=== PATIENT | female | born 1980 | race Caucasian/White ===

== ENCOUNTER 2017-01-27 10:45 | Emergency (ER) | payer SELFPAY ==
[~2017-01-27] VITALS: Ht 157.5 cm; Wt 50.0 kg
[~2017-01-27 10:45] MED LIST: ALBU0.08 NEB; ALBU2.5I INH; OXYC1TAB63 PO; TRIAM.1%T TOPICAL
[2017-01-27 10:47] VITALS: BP 130/59; PULSE 88; RESP 18; TEMP 98; O2SAT 99
[2017-01-27] MEDS ORDERED: LORazepam 1 MG TAB PO ONE (11:15)
[2017-01-27 11:27] VITALS: BP 131/85; PULSE 86; RESP 20; O2SAT 99
[2017-01-27 11:45] LABS: AUTOMATED NEUTROPHIL # 6.2 TH/MM3 (1.8-7.7); BASOPHIL # 0.1 TH/MM3 (0-0.2); BASOPHIL % 0.6 % (0.0-2.0); EOSINOPHIL # 0.2 TH/MM3 (0-0.4); EOSINOPHIL % 1.9 % (0.0-4.0); HEMATOCRIT 39.3 % (35.0-46.0); HEMO FLAGS DIFF FINAL; LYMPH % 18.2 % (9.0-44.0); LYMPHOCYTE # 1.7 TH/MM3 (1.0-4.8); MEAN CELL VOLUME 85.4 FL (80.0-100.0); MEAN CORPUSCULAR HEMOGLOBIN 28.5 PG (27.0-34.0); MEAN CORPUSCULAR HGB CONC 33.4 % (32.0-36.0); MONO % 12.4 % (0.0-8.0); NEUT % 66.9 % (16.0-70.0); PLATELET COUNT 336 TH/MM3 (150-450); RED CELL DISTRIBUTION WIDTH 16.3 % (11.6-17.2); WHITE BLOOD COUNT 9.3 TH/MM3 (4.0-11.0)
[2017-01-27 11:57] LABS: AMPHETAMINE, URINE POS (NEG); BARBITURATES, URINE NEG (NEG); COCAINE, URINE POS (NEG)
[2017-01-27 11:58] LABS: ALT (GPT) 21 U/L (10-53); ANION GAP 7 MEQ/L (5-15); AST (GOT) 24 U/L (15-37); BICARBONATE 25.9 MEQ/L (21.0-32.0); BLOOD UREA NITROGEN 12 MG/DL (7-18); CHLORIDE 108 MEQ/L (98-107); GLOMERULAR FILTRATION RATE 89 ML/MIN (>89); POTASSIUM 3.2 MEQ/L (3.5-5.1); SODIUM (NA) 141 MEQ/L (136-145)
[2017-01-27 12:01] LABS: ACETAMINOPHEN LESS THAN 2.0 MCG/ML (10.0-30.0); ALKALINE PHOSPHATASE 74 U/L (45-117); TOTAL BILIRUBIN ADULT 0.5 MG/DL (0.2-1.0)
[2017-01-27] MEDS ORDERED: ALBUAER3 INH (12:15)
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
== END 2017-01-27 13:46 | disposition home or self-care (01) ==
LOC: NEPD 10:45
DX: F41.9 Anxiety disorder, unspecified (principal); F19.920 Other psychoactive substance use, unspecified with intoxication, uncomplicated; J45.909 Unspecified asthma, uncomplicated; F17.210 Nicotine dependence, cigarettes, uncomplicated
CPT/HCPCS: 80053; 80307; 85025; 99283

== ENCOUNTER 2017-02-10 15:25 | Emergency (ER) | payer SELFPAY ==
[~2017-02-10] VITALS: Ht 157.5 cm; Wt 50.0 kg
[~2017-02-10 15:25] MED LIST changes: -ALBU0.08 NEB; -ALBU2.5I INH; +ALBUAER3 INH; -OXYC1TAB63 PO; -TRIAM.1%T TOPICAL
[2017-02-10 15:27] VITALS: BP 116/57; PULSE 92; RESP 18; TEMP 99.5; O2SAT 96
--- NOTE | 2017-02-10 15:35 | PD ---
Physical Exam Time Seen by Provider: 15:33 Narrative 36yo F c/o worsening of pain to R buttock abscess she had I&D yesterday at [facility]. Taking antibx. Denies fever, vomiting. Patient seen in triage. Awaiting bed placement. VS reviewed. Data Data Last Documented VS Vital Signs Date Time Temp Pulse Resp B/P Pulse Ox O2 Delivery O2 Flow Rate FiO2 02/10/17 15:27 99.5 92 18 116/57 96 MDM Supervised Visit with BONY: Marissa Putnam February 10, 2017 15:35
--- NOTE | 2017-02-10 15:37 | PD ---
HPI . right buttocks abscess Chief Complaint: Skin Problem Time Seen by Provider: 15:37 Travel History International Travel<30 days: No Contact w/Intl Traveler<30days: No Traveled to known affect area: No History of Present Illness HPI 36-year-old female here with complaints of a right buttocks abscess. She was previously seen at another hospital yesterday and received incision and drainage. She thinks the area is worsening secondary increased pain. Patient is now on Bactrim. She is taking it daily. She tells me it very difficult for her to go to work because she stands up and her buttocks is hurting. She denies any fever, but thinks she may have had chills. PFSH Past Medical History Asthma: Yes Blood Disorders: Yes (Vaginal bleed 06/16/16) Anxiety: Yes Cancer: No Cardiovascular Problems: No Diabetes: No Diminished Hearing: No Genitourinary: No Immune Disorder: No Musculoskeletal: Yes (carpal tunnel) Neurologic: No Reproductive: Yes (Admitted 06/16/16 for D&C for bleeding) Respiratory: Yes (ASTHMA) Thyroid Disease: No ?: Not : 3 Para: 1 Miscarriage: 1 : 1 Dilation and Curettage (D&C): Yes Past Surgical History Appendectomy: Yes Social History Alcohol Use: Yes Tobacco Use: Yes (1/2 ppd) Substance Use: Yes (OPIATES, METH, COCAINE, MARIJUANA) Allergies-Medications (Allergen,Severity, Reaction): Coded Allergies: No Known Allergies (Unverified , 01/27/17) Reported Meds & Prescriptions Reported Meds & Active Scripts Active Proair Hfa 8.5 GM Inh (Albuterol Sulfate) 90 Mcg/Act Aer 2 Puff INH Q4-6H PRN 108 mcg/actuation Review of Systems General / Constitutional: No: Fever Eyes: No: Visual changes HENT: No: Headaches Cardiovascular: No: Chest Pain or Discomfort Respiratory: No: Shortness of Breath Gastrointestinal: No: Abdominal Pain Genitourinary: No: Dysuria Musculoskeletal: No: Pain Skin: Positive Other (buttocks pain/swelling), No Rash Neurologic: No: Weakness Psychiatric: No: Depression Endocrine: No: Polydipsia Hematologic/Lymphatic: No: Easy Bruising Physical Exam Narrative GENERAL: AAO x 3, no acute distress, Well-nourished, well-developed patient. SKIN: Warm and dry. No visible rashes or bruising. right buttocks, small area of erythema approximately quarter sized. firm, without any fluctuance. no streaking. very minimal drainage present. no induration present. HEAD: Normocephalic and atraumatic. EYES: No scleral icterus. No injection or drainage. ENT: No nasal drainage noted. Mucous membranes pink. Airway patent. NECK: Supple, trachea midline. No JVD. CARDIOVASCULAR: Regular rate and rhythm without murmurs, gallops, or rubs. RESPIRATORY: Breath sounds equal bilaterally. No accessory muscle use. No rhonchi or rales. GASTROINTESTINAL: visual inspection normal EXTREMITIES: No cyanosis or edema. BACK: Nontender without obvious deformity. No CVA tenderness. PSYCH: AAO x 3, normal affect. Data Data Last Documented VS Vital Signs Date Time Temp Pulse Resp B/P Pulse Ox O2 Delivery O2 Flow Rate FiO2 02/10/17 15:27 99.5 92 18 116/57 96 MDM Medical Decision Making Medical Screen Exam Complete: Yes Emergency Medical Condition: Yes Medical Record Reviewed: Yes Differential Diagnosis cellulitis, abscess, less likely sepsis Narrative Course 36-year-old female seen and examined. She appears to have a previous abscess that has been lanced. It is not an actual abscess today. It is not indurated or fluctuant. There is an area of cellulitis present I've advised her to continue using Bactrim daily. She can try warm compresses to the area to see if it forms into another abscess , and can return for drainage. We discussed signs of worsening infection and when to return to the emergency department. I advised to keep the area clean. Patient verbalized understanding of instructions, questions were answered, and thanked me for their care. I advised them if their condition worsens, please return to the nearest emergency room for further care. Diagnosis Primary Impression: Cellulitis of buttock, right Patient Instructions: General Instructions Departure Forms: Tests/Procedures, Work Release Enter return to work date: February 11, 2017 Additional Instructions: [place] for worsening signs of infection which include fever, increased redness , increased warmth, purulent drainage, increased swelling or streaking. If any of these develop, please go to the nearest emergency room. Continue taking the previous antibiotic use were given. You can try to use warm compresses to the area to see if a head develops. If it does, you can come back to the emergency department to have it drained. Disposition: 01 DISCHARGE HOME Condition: Stable Rochelle Cartwright February 10, 2017 15:37
== END 2017-02-10 16:05 | disposition home or self-care (01) ==
LOC: NEPK 15:25
DX: L03.317 Cellulitis of buttock (principal); F17.200 Nicotine dependence, unspecified, uncomplicated; Z98.890 Other specified postprocedural states; Z87.09 Personal history of other diseases of the respiratory system; Z86.59 Personal history of other mental and behavioral disorders; Z87.39 Personal history of other diseases of the musculoskeletal system and connective tissue
CPT/HCPCS: 99282

== ENCOUNTER 2017-06-03 02:17 | Emergency (ER) | payer SELFPAY ==
[~2017-06-03] VITALS: Ht 157.5 cm; Wt 52.0 kg
[2017-06-03 02:20] VITALS: BP 140/72; PULSE 74; RESP 18; TEMP 98.7; O2SAT 95
[2017-06-03 02:46] VITALS: BP_SYST 116; BP_SYST 88; BP_DIAS 51; BP_DIAS 72; PULSE 63; RESP 16; TEMP 98.2; O2SAT 98
--- NOTE | 2017-06-03 02:53 | PD ---
HPI Chief Complaint: Complaint Time Seen by Provider: 02:31 Travel History International Travel<30 days: No Contact w/Intl Traveler<30days: No Traveled to known affect area: No History of Present Illness HPI 36 y/o female presents with vaginal bleeding and states she was just at [facility] and diagnosed with a uti and placed on ciprofloxacin. she states that after her antibiotic now is started having vaginal bleeding and is worried her cyst is acting up. she states her lmp was the 20th of last month and her cycle is usually regular. she states the bleeding is better now and had just started. she denies other concerns. PFSH Past Medical History Asthma: Yes Blood Disorders: Yes (Vaginal bleed 06/16/16) Anxiety: Yes Cancer: No Cardiovascular Problems: No Diabetes: No Diminished Hearing: No Gastrointestinal Disorders: No Genitourinary: No Immune Disorder: No Implanted Vascular Access Dvce: No Musculoskeletal: Yes (carpal tunnel) Neurologic: No Reproductive: Yes (Admitted 06/16/16 for D&C for bleeding) Respiratory: Yes (ASTHMA) Integumentary: Yes (psoriasis ) Immunizations Current: No Thyroid Disease: No Tetanus Vaccination: Unknown ?: Not LMP: 05/13/17 : 3 Para: 1 Miscarriage: 1 : 1 Dilation and Curettage (D&C): Yes Past Surgical History Appendectomy: Yes Other Surgery: Yes (appendectomy) Social History Alcohol Use: Yes Tobacco Use: Yes (1 ppd every 2 days) Substance Use: Yes (OPIATES, METH, COCAINE, MARIJUANA) Allergies-Medications (Allergen,Severity, Reaction): Coded Allergies: No Known Allergies (Unverified , 06/03/17) Reported Meds & Prescriptions Reported Meds & Active Scripts Active Proair Hfa 8.5 GM Inh (Albuterol Sulfate) 90 Mcg/Act Aer 2 Puff INH Q4-6H PRN 108 mcg/actuation Review of Systems Except as stated in HPI: all other systems reviewed are Neg Physical Exam Narrative GENERAL: Well-nourished, well-developed patient. well appearing SKIN: Warm and dry. HEAD: Normocephalic and atraumatic. EYES: No injection or drainage. ENT: No nasal drainage noted. NECK: Supple, trachea midline. CARDIOVASCULAR: Regular rate and rhythm RESPIRATORY: Breath sounds equal bilaterally. No accessory muscle use. GASTROINTESTINAL: Abdomen soft, mild ttp in suprapubic area, nondistended. EXTREMITIES: No edema. NEUROLOGICAL: Awake and alert. Motor and sensory grossly within normal limits. Normal speech. Data Data Last Documented VS Vital Signs Date Time Temp Pulse Resp B/P (MAP) Pulse Ox O2 Delivery O2 Flow Rate FiO2 06/03/17 04:47 06/03/17 02:46 98.2 63 16 98 Room Air Orders Orders Urinalysis - C+S If Indicated (06/03/17 02:42) Ed Urine Pregnancytest Poc (06/03/17 02:42) Us Pelvis Comp W Dop Transvag (06/03/17 02:42) Ibuprofen (Motrin) (06/03/17 05:00) Labs Laboratory Tests Test 06/03/17 02:50 Urine Color YELLOW Urine Turbidity CLEAR Urine pH 7.0 Urine Specific [place] 1.016 Urine Protein NEG mg/dL Urine Glucose (UA) NEG mg/dL Urine Ketones NEG mg/dL Urine Occult Blood NEG Urine Nitrite NEG Urine Bilirubin NEG Urine Urobilinogen LESS THAN 2.0 MG/DL Urine Leukocyte Esterase NEG Urine RBC 2 /hpf Urine WBC 1 /hpf Urine Squamous Epithelial Cells <1 /hpf Microscopic Urinalysis Comment CULT NOT INDICATED MDM Medical Decision Making Medical Screen Exam Complete: Yes Emergency Medical Condition: Yes Medical Record Reviewed: Yes (pm[facility] confirmed) Interpretation(s) beta is negative ua no acute Last 24 hours Impressions Abdomen/Pelvis/Transvag US 06/03/17 0242 Signed Impressions: Service Date/Time: Saturday, June 03, 2017 03:18 - CONCLUSION: 1. 6.9 cm complex multiseptated right ovarian cyst. 2. Small subcentimeter nabothian cyst. 3. Trace free fluid. Pelvic ultrasound follow-up in 6-12 weeks is recommended for findings suggestive, but not classic for hemorrhagic adnexal cyst, endometrioma, or dermoid in women of reproductive age. If unchanged or unresolved, follow with contrast-enhanced pelvic MRI or ultrasound. Unless classic endometrioma or dermoid is then confirmed on contrast-enhanced pelvic MRI or ultrasound follow-up, consider surgical consultation. Reference: Marleny Mcneill MD Differential Diagnosis cyst, menses, ectopic, miscarriage... Narrative Course will check ua, beta, us and reeval, patient agrees to plan ed workup shows 6.9 cm complex cyst on right, will discuss with ob hospitalist Patient denies any new complaints and states that they are feeling better. Patient happy with care, all questions answered. Patient knows that follow up is incumbent on them and to return to the emergency room immediately if new or worsening symptoms develop. Patient given strict return precautions, vitals reviewed and are normal, agrees to further workup as an outpatient. 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
[2017-06-03 03:00] LABS: BLOOD, URINE NEG (NEG); GLUCOSE,URINE NEG (NEG); KETONE, URINE NEG (NEG); NITRITE,URINE NEG (NEG); SQUAMOUS EPITHELIAL CELL URINE <1 /hpf (0-5); URINE COLOR YELLOW (YELLW/STRAW)
[2017-06-03 03:02] LABS: COMMENT (UR) CULT NOT INDICATED; CULTURE IF INDICATED CULT NOT INDICATED
--- NOTE | 2017-06-03 04:34 | RADRPT ---
EXAM DATE/TIME: 06/03/2017 03:18 [place] COMPARISON: No previous studies available for comparison. INDICATIONS : Pelvic pain. MEDICAL HISTORY : Asthma. Carpel tunnel. Bipolar disorder. Anxiety. Psoriasis. Substance us e. SURGICAL HISTORY : Appendectomy. Blood transfusions. D&C. ENCOUNTER: Initial ACUITY: 2 days PAIN SCORE: 10/10 LOCATION: Bilateral pelvis MEASUREMENTS: UTERUS: 8.3 x 4.0 x 4.2 cm ENDOMETRIAL STRIPE: 4 mm RIGHT OVARY: 7.5 x 6.3 x 5.9 cm LEFT OVARY: 2.6 x 2.2 x 1.5 cm FINDINGS: UTERUS: The myometrium has homogeneous echotexture without mass. Small cyst measuring 4 x 5 x 4 mm near the cervix reflecting a small nabothian cyst. RIGHT OVARY: Multiple right ovarian cysts with a large complex multiseptated cyst measuring 6.9 x 4.7 x 5.0 cm. Normal ovarian blood flow at this time. LEFT OVARY: Ovary contains no mass or significant cystic lesion. Normal ovarian blood flow at th is time. MISCELLANEOUS: Trace free fluid CONCLUSION: 1. 6.9 cm complex multiseptated right ovarian cyst. 2. Small subcentimeter nabothian cyst. 3. Trace free fluid. Pelvic ultrasound follow-up in 6-12 weeks is recommended for findings suggestive, but not classic for hemorrhagic adnexal cyst, endometrioma, or dermoid in women of reproductive age. If unchanged or unr esolved, follow with contrast-enhanced pelvic MRI or ultrasound. Unless classic endometrioma or derm oid is then confirmed on contrast-enhanced pelvic MRI or ultrasound follow-up, consider surgical cons ultation. Reference: Marleny Mcneill MD, et al. Management of Asymptomatic Ovarian and Other Adnexa l Cysts Imaged at Ultrasound: Society of Radiologists in Ultrasound Consensus Conference Statement. R adiology 2010; 256:943-954. Lukas Alvarez MD on June 03, 2017 at 4:26 Board Certified Radiologist. This report was verified electronically.
[2017-06-03] MEDS ORDERED: IBUPROFEN 400 MG TAB PO ONE (05:00)
== END 2017-06-03 04:48 | disposition home or self-care (01) ==
LOC: NEPC 02:17
DX: N83.201 Unspecified ovarian cyst, right side (principal); N93.9 Abnormal uterine and vaginal bleeding, unspecified; F17.200 Nicotine dependence, unspecified, uncomplicated; R10.2 Pelvic and perineal pain
CPT/HCPCS: 76830; 76856; 81001; 84703; 93975; 99284

== ENCOUNTER 2017-08-31 16:25 | Emergency (ER) | payer SELFPAY ==
[~2017-08-31] VITALS: Ht 157.5 cm; Wt 52.3 kg
[2017-08-31 16:26] VITALS: BP 129/71; PULSE 63; RESP 18; TEMP 98.7; O2SAT 98
[2017-08-31] MEDS ORDERED: BACT800T5 PO (18:22)
--- NOTE | 2017-08-31 18:27 | PD ---
HPI Chief Complaint: Skin Problem Time Seen by Provider: 18:08 Travel History International Travel<30 days: No Contact w/Intl Traveler<30days: No Traveled to known affect area: No History of Present Illness HPI 36 year-old female presents to the emergency room for evaluation of a painful lesion to her posterior scalp that she first noticed 2 days ago. States it started off with small pimple and has greatly expanded in size. States it is now moving down her neck and causing headaches. She has been trying to squeeze/ strain it but cannot see her reach it. Pain is worsened when she touches it. Nothing improves symptoms. Denies fever, chills, nausea, vomiting. PFSH Past Medical History Asthma: Yes Blood Disorders: Yes (Vaginal bleed 06/16/16) Anxiety: Yes Cancer: No Cardiovascular Problems: No Diabetes: No Diminished Hearing: No Gastrointestinal Disorders: No Genitourinary: No Immune Disorder: No Implanted Vascular Access Dvce: No Musculoskeletal: Yes (carpal tunnel) Neurologic: No Reproductive: Yes (Admitted 06/16/16 for D&C for bleeding) Respiratory: Yes (ASTHMA) Integumentary: Yes (psoriasis ) Immunizations Current: No Thyroid Disease: No ?: Unknown LMP: 08/07/2017 : 3 Para: 1 Miscarriage: 1 : 1 Dilation and Curettage (D&C): Yes Past Surgical History Appendectomy: Yes Other Surgery: Yes (appendectomy) Social History Alcohol Use: Yes Tobacco Use: Yes (1 ppd every 2 days) Substance Use: Yes (OPIATES, METH, COCAINE, MARIJUANA) Allergies-Medications (Allergen,Severity, Reaction): Coded Allergies: No Known Allergies (Unverified Adverse Reaction, Unknown, 08/31/17) Reported Meds & Prescriptions Reported Meds & Active Scripts Active Bactrim DS (Sulfamethoxazole-Trimethoprim) 800-160 Mg Tab 1 Tab PO BID Review of Systems Except as stated in HPI: all other systems reviewed are Neg Physical Exam Narrative GENERAL: Well-nourished, well-developed female in no acute distress. Afebrile. Ambulatory. SKIN: Focused skin assessment warm/dry. There is an indurated area in the right posterior scalp which measures about 4 cm in diameter. It is fluctuant but there is no pointing or drainage. There is a zone of inflammation around it but no lymphangitis. HEAD: Normocephalic. EYES: No scleral icterus. No injection or drainage. NECK: Supple, trachea midline. No JVD or lymphadenopathy. CARDIOVASCULAR: Regular rate and rhythm without murmurs, gallops, or rubs. RESPIRATORY: Breath sounds equal bilaterally. No accessory muscle use. PSYCHIATRIC: No delusional thought processes. No hallucinations. Data Data Last Documented VS Vital Signs Date Time Temp Pulse Resp B/P (MAP) Pulse Ox O2 Delivery O2 Flow Rate FiO2 08/31/17 16:26 98.7 63 18 129/71 (90) 98 Room Air MDM Medical Decision Making Medical Screen Exam Complete: Yes Emergency Medical Condition: Yes Medical Record Reviewed: Yes Differential Diagnosis Abscess, folliculitis, cellulitis Narrative Course 36-year-old female presents to the emergency room for evaluation of abscess to her posterior scalp that started 2 days ago. No systemic signs of infection. Afebrile and well-appearing in the emergency room. No lymphangitis. Abscess was drained, see procedure note for details. Patient discharged with prescriptions for Bactrim and told to follow up with PCP or return for worsening symptoms. She understands and agrees to plan. Procedures Procedure Narrative INCISION AND DRAINAGE OF ABSCESS: The area was prepped and was sterilely draped. A subcutaneous wheal of 1% lidocaine with epinephrine with a total number 2 mL was used to anesthetize the area properly. A number 11 scalpel was used to make a 1 cm incision across the area of the abscess. The abscess was drained, complex loculations were broken down, and irrigated with normal saline. Sterile dressing applied. Diagnosis Primary Impression: Abscess Referrals: Primary Care Physician Additional Instructions: Rest and drink plenty of fluids. Take Bactrim as directed, until gone. Follow up with a primary care physician. Return to emergency room for worsening symptoms, as discussed. Med/Other Pt SpecificInfo: Prescription(s) given Scripts Sulfamethoxazole-Trimethoprim (Bactrim DS) 800-160 Mg Tab 1 TAB PO BID for Infection, #20 TAB 0 Refills Prov: Leif Nielson MD 08/31/17 Disposition: 01 DISCHARGE HOME Condition: Stable Kimberlyn Yao Aug 31, 2017 18:27
[2017-08-31] MEDS ORDERED: ACETAMINOPHEN 325 MG TAB PO ONE (18:30)
[2017-08-31] MEDS ORDERED: SULFAMETHOXAZOLE-TRIMETHOPRIM DS 800-160 MG TAB PO ONE (18:30)
== END 2017-08-31 18:40 | disposition home or self-care (01) ==
LOC: NEPK 16:25
DX: L02.811 Cutaneous abscess of head [any part, except face] (principal); F17.200 Nicotine dependence, unspecified, uncomplicated
CPT/HCPCS: 10060

== ENCOUNTER 2017-11-10 21:32 | Emergency (ER) | payer OTHER ==
[~2017-11-10] VITALS: Ht 157.5 cm; Wt 52.0 kg
[~2017-11-10 21:32] MED LIST changes: -ALBUAER3 INH; +BACT800T5 PO
[2017-11-10 21:45] VITALS: BP 133/82; PULSE 98; RESP 18; TEMP 98.6; O2SAT 99
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
[2017-11-10] MEDS ORDERED: MORPHINE SULFATE 4 MG/ML INJ IM ONE (22:15)
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
[2017-11-10] MEDS ORDERED: KETO10 PO (23:10)
[2017-11-10] MEDS ORDERED: CYCL10TA PO (23:10)
[2017-11-10 23:45] VITALS: BP 124/76; PULSE 84; RESP 16; O2SAT 98
== END 2017-11-11 00:01 | disposition home or self-care (01) ==
LOC: NEPE 21:32
DX: S63.501A Unspecified sprain of right wrist, initial encounter (principal); S70.01XA Contusion of right hip, initial encounter; S00.83XA Contusion of other part of head, initial encounter; J45.909 Unspecified asthma, uncomplicated; F17.210 Nicotine dependence, cigarettes, uncomplicated; V49.59XA Passenger injured in collision with other motor vehicles in traffic accident, initial encounter; Y92.410 Unspecified street and highway as the place of occurrence of the external cause
CPT/HCPCS: 70486; 71045; 72040; 73502; 96372; 99284; J2270